=== PATIENT | female | born 1935 | race Caucasian/White ===

== ENCOUNTER 2017-06-04 00:30 | Observation (INO) ==
[2017-06-04] MEDS ORDERED: SALINE FLUSH 10ml SYRINGE IVF PRN (00:35)
--- NOTE | 2017-06-04 00:37 | Emergency Department Report ---
General Adult HPI - General Chief complaint: Nausea/Vomiting/Diarrhea Stated complaint: Dizzy Time Seen by Provider: 06/04/17 00:35 Source: patient, EMS Mode of arrival: EMS Limitations: no limitations - History of Present Illness HPI narrative: 81-year-old female presents to the emergency department with a chief complaint of dizziness. She describes the dizziness as the room spinning about her. She does note that the dizziness is worse with her eyes open and moving her head. She noted onset of symptoms approximately 2 hours prior to arrival to the emergency department. Patient has had at least 3 other similar episodes in the past without a confirmed diagnosis. Patient had an unremarkable brain MRI performed in April 2017. She denies any pain or discomfort. She does note nausea and dry heaving. She denies any trauma, travel, poorly prepared food, or recent antibiotic use. She has no other complaints or associated symptoms. She was at home when her symptoms began. Symptoms have been persistent in nature since onset. - Related Data Home Medications Medication Instructions Recorded Confirmed hydroCHLOROthiazide 25 mg PO DAILY #0 tab 09/22/13 06/04/17 [Hydrochlorothiazide] ALPRAZolam [Xanax] 0.125 mg PO BID PRN 05/06/17 06/04/17 Estrogens, Conjugated [Premarin] 0.3 mg PO DAILY 05/06/17 06/04/17 Ipratropium 0.03% NASAL SPRAY 1 spray EA NOSTRIL DAILY 05/06/17 06/04/17 [Atrovent 0.03% Nasal [place]] Levothyroxine Sodium 50 mcg PO ACB 05/06/17 06/04/17 Multivitamin [One Daily] 1 tab PO DAILY 05/06/17 06/04/17 Rivaroxaban [Xarelto] 20 mg PO WS 05/06/17 06/04/17 Previous Rx's Medication Instructions Recorded Metoclopramide HCl [Reglan] 10 mg PO QID PRN #30 tab 05/06/17 Allergies Allergy/AdvReac Type Severity Reaction Status Date / Time Sulfa (Sulfonamide Allergy Unknown Verified 06/04/17 00:57 Antibiotics) Penicillins AdvReac Unknown NAUSEA Verified 06/04/17 00:57 Review of Systems Constitutional: Denies: fever, chills Eyes: Denies: eye pain, vision change ENT: Denies: ear pain, throat pain Cardiovascular: Denies: chest pain, palpitations Respiratory: Denies: cough, dyspnea Gastrointestinal: Reports: nausea, vomiting. Denies: abdominal pain, diarrhea Genitourinary: Denies: urgency, dysuria Musculoskeletal: Denies: back pain, arthralgia Integumentary: Denies: erythema, rash Neurological: Denies: headache, numbness, paresthesias Psychiatric: Denies: anxiety, depression Endocrine: Denies: fatigue, heat or cold intolerance Hematological/Lymphatic: Denies: easy bruising, lymphadenopathy Allergic/Immunologic: Denies: facial swelling, urticaria PFSH Patient Stated Medical History Other HEENT Yes: GLASSES Cardiac Arrhythmia Yes: A FIB Hypertension Yes Other Hematologic Yes: XARELTO Surgical History: breast cyst -- benign). hysterectomy. hand (trigger finger) Family History: Reviewed and noncontributory. - Social History Smoking status: Never smoker Substance use type: does not use Alcohol intake frequency: does not drink Physical Exam - Limitations Limitations: no limitations - General General appearance: alert, in no apparent distress - Normal Exams: Head:: Normocephalic without trauma Eyes:: Pupils are PERRLA w/ EOMI, No scleral icterus, irritation, or foreign bodies noted (+ horizontal nystagmus.) ENMT:: No facial trauma, nasal exudates, pharyngeal erythema, or exudates are noted Dental: No fractured, loose, or missing teeth noted Neck:: Full range of motion, without adenopathy, JVD, bruits or thyromegaly Chest/Respirations:: Clear all justin, with good airflow, and symmetry bilaterally Cardiovascular:: Regular rate and rhythm, without murmur or gallop, Pulses 2+ all extremities, capillary refill, <2 seconds all extremities Abdomen:: Bowel sounds positive, soft, non-tender, non-distended, no hepatosplenomegaly, masses or bruits noted Lymphatic:: No lymphadenopathy, or lymphedema noted Musculoskeletal:: No tenderness, or deformity noted, good range of motion, all extremities Integumentary:: No rashes, hives, or bruising noted, hair and nails, without abnormality Neurological:: Patient is alert (Alert and oriented x 3. CN 2-12 intact. Normal strength. Normal motor. Normal gait. Sensation Intact. Normal speech. Normal coordination. Absent Babinski bilaterally. Reflexes 2/4 in all extremities.), and oriented, cranial nerves, motor/sensory/cerebellar, exams w/o gross deficits, to observation Psychiatric:: Patient exhibits, appropriate attention, emotion and affect Course Vital Signs Temperature 97.5 F 06/04/17 00:30 Pulse Rate 84 06/04/17 00:30 Respiratory Rate 20 06/04/17 00:30 Blood Pressure 176/78 H 06/04/17 00:30 Pulse Oximetry 92 06/04/17 00:30 Temperature 97.7 F 06/04/17 04:09 Pulse Rate 73 06/04/17 04:09 Respiratory Rate 18 06/04/17 04:09 Blood Pressure 151/77 H 06/04/17 04:09 Pulse Oximetry 98 06/04/17 04:09 Medical Decision Making - [facility] Narrative Medical decision making narrative: Labs / imaging were discussed in detail with the patient and family and questions are answered. Patient is given 500 cc normal saline intravenously times one. She is given Zofran 4 mg IV 1 with improvement of nausea. She is given Antivert 25 mg by mouth 1 with improvement but not resolution of the dizziness. Patient does have resolution of vomiting and improvement in her dizziness but I am not able to totally alleviated the dizziness and the patient is feeling unsteady and dizzy when ambulating. She is a fall risk due to this. She lives alone at home with her elderly . Patient and are not comfortable returning home. Patient is admitted to the service of the hospitalist Dr. Pedraza after discussion with Dr. Plata. No further orders from accepting physician who is in agreement with the current plan of management. Patient and family are in agreement with the current plan of management. She is admitted to the hospital in improved condition. Patient has no urinary symptoms. Culture of urine will be obtained prior to treating. - Differential Diagnosis vertigo, dizziness, dehydration, metabolic process - Lab Data Result diagrams: 06/04/17 00:41 06/04/17 00:41 Lab Results 06/04/17 06/04/17 06/04/17 Range/Units 00:41 00:41 00:52 WBC 12.1 H (4.5-11.0) T/MM3 RBC 4.03 (4.00-5.20) M/MM3 Hgb 12.9 (12-16) GM/DL Hct 38.3 (36-46) % MCV 95.0 (80-100) UM3 MCH 32.0 (26-34) UUG MCHC 33.7 (31-37) GM/DL RDW Std Deviation 44.5 (36.9-50.2) FL Plt Count 207 (130-400) T/MM3 MPV 10.8 (9.4-12.4) UM3 Immature Gran % (Auto) 0.2 (0.0-0.5) % Neut % (Auto) 37.0 (33-66) % Lymph % (Auto) 51.9 H (23-45) % [place] % (Auto) 7.9 (0-9.0) % Eos % (Auto) 2.8 (0-4) % Baso % (Auto) 0.2 (0-2) % Neut # (Auto) 4.5 (1.8-7.7) T/MM3 Lymph # (Auto) 6.3 H (1-4.8) T/MM3 [place] # (Auto) 1.0 H (0-0.8) T/MM3 Eos # (Auto) 0.3 (0-0.5) T/MM3 Baso # (Auto) 0.0 (0-0.2) T/MM3 Abs Immat Gran (auto) 0.02 (0.00-0.03) T/MM3 Turbidity < 20 (0-20) Sodium 140 (134-144) MEQ/L Potassium 3.4 L (3.6-5) MEQ/L Chloride 105 (98-107) MEQ/L Carbon Dioxide 26 (22-30) MEQ/L Anion Gap 9 (5-15) MEQ/L BUN 17.0 (7-17) MG/DL Creatinine 0.9 (0.7-1.2) MG/DL GFR Calculation 60 BUN/Creatinine Ratio 19 (6-26) RATIO Glucose 104 (65-110) MG/DL Calculated Osmolality 271 (261-280) MOSM/KG Calcium 9.2 (8.4-10.2) MG/DL Total Bilirubin < 0.10 L (0.20-1.30) MG/DL Icterus Index < 2 (0-7) AST 27 (14-36) U/L ALT 32 (9-52) U/L Alkaline Phosphatase 93 (38-126) U/L Troponin I < 0.012 (0-0.12) ng/ml Total Protein 7.1 (6.3-8.2) G/DL Albumin 3.9 (3.5-5.0) G/DL Globulin 3.2 (2.4-3.6) G/DL Albumin/Globulin Ratio 1.2 (1.1-2.2) RATIO Specimen Hemolysis < 15 (0-25) Ur Collection Type Urine Color (YELLOW) Urine Clarity Urine pH (5.0-8.0) Ur Specific [place] (1.015-1.025) Urine Protein (NEGATIVE) Urine Glucose (UA) (NEGATIVE) Urine Ketones (NEGATIVE) Urine Occult Blood (NEGATIVE) Urine Nitrate (NEGATIVE) Urine Bilirubin (NEGATIVE) Urine Urobilinogen (NORMAL) EU/DL Ur Leukocyte Esterase (NEGATIVE) Urine RBC (0-3) /HPF Urine WBC (0-5) /HPF Ur Squamous Epith Cells Urine Bacteria (NEGATIVE) Ur Culture Indicated? Influenza Type A (PCR) Negative (Negative) Influenza Type B (PCR) Negative (Negative) 06/04/17 Range/Units 03:06 WBC (4.5-11.0) T/MM3 RBC (4.00-5.20) M/MM3 Hgb (12-16) GM/DL Hct (36-46) % MCV (80-100) UM3 MCH (26-34) UUG MCHC (31-37) GM/DL RDW Std Deviation (36.9-50.2) FL Plt Count (130-400) T/MM3 MPV (9.4-12.4) UM3 Immature Gran % (Auto) (0.0-0.5) % Neut % (Auto) (33-66) % Lymph % (Auto) (23-45) % [place] % (Auto) (0-9.0) % Eos % (Auto) (0-4) % Baso % (Auto) (0-2) % Neut # (Auto) (1.8-7.7) T/MM3 Lymph # (Auto) (1-4.8) T/MM3 [place] # (Auto) (0-0.8) T/MM3 Eos # (Auto) (0-0.5) T/MM3 Baso # (Auto) (0-0.2) T/MM3 Abs Immat Gran (auto) (0.00-0.03) T/MM3 Turbidity (0-20) Sodium (134-144) MEQ/L Potassium (3.6-5) MEQ/L Chloride (98-107) MEQ/L Carbon Dioxide (22-30) MEQ/L Anion Gap (5-15) MEQ/L BUN (7-17) MG/DL Creatinine (0.7-1.2) MG/DL GFR Calculation BUN/Creatinine Ratio (6-26) RATIO Glucose (65-110) MG/DL Calculated Osmolality (261-280) MOSM/KG Calcium (8.4-10.2) MG/DL Total Bilirubin (0.20-1.30) MG/DL Icterus Index (0-7) AST (14-36) U/L ALT (9-52) U/L Alkaline Phosphatase (38-126) U/L Troponin I (0-0.12) ng/ml Total Protein (6.3-8.2) G/DL Albumin (3.5-5.0) G/DL Globulin (2.4-3.6) G/DL Albumin/Globulin Ratio (1.1-2.2) RATIO Specimen Hemolysis (0-25) Ur Collection Type Urine, clean catch Urine Color Yellow (YELLOW) Urine Clarity Clear Urine pH 7.0 (5.0-8.0) Ur Specific [place] 1.015 (1.015-1.025) Urine Protein Negative (NEGATIVE) Urine Glucose (UA) Negative (NEGATIVE) Urine Ketones Negative (NEGATIVE) Urine Occult Blood Negative (NEGATIVE) Urine Nitrate Negative (NEGATIVE) Urine Bilirubin Negative (NEGATIVE) Urine Urobilinogen 0.2 (NORMAL) EU/DL Ur Leukocyte Esterase 1+ A (NEGATIVE) Urine RBC None seen (0-3) /HPF Urine WBC 3-5 (0-5) /HPF Ur Squamous Epith Cells 0-5 Urine Bacteria Trace H (NEGATIVE) Ur Culture Indicated? Cult not indicated Influenza Type A (PCR) (Negative) Influenza Type B (PCR) (Negative) - Radiology Data CXR - No acute processes. CT HEAD - Negative. - EKG Data EKG #1 EKG results narrative: Sinus rhythm. 72 bpm. No STEMI. Disposition Clinical Impression: Dizziness Disposition: 02 To [facility] Condition: Stable Time of Disposition: 03:15 (Admit. Dr. Pedraza. ) - Seen By: physician
[2017-06-04] MEDS ORDERED: NS 1,000 ML IV ONE (00:52)
[2017-06-04] MEDS ORDERED: MECLIZINE 25 MG TABLET PO ONE (01:34)
[2017-06-04] MEDS ORDERED: ONDANSETRON 4 MG/2 ML INJECTION IVP ONE (01:36)
--- NOTE | 2017-06-04 03:59 | History & Physical Report ---
History of Present Illness Date: 06/04/17 Chief complaint: dizzy HPI: this is an 81 y/o w/ h/o HTN, Anxiety, Hypothyroidism, Afib (NSR tonight) on Xarelto who presents to ED w/ relatively quick onset of dizziness described as room spinning, symptoms altered by change in head position and opening/closing eyes. Patient states she was supine in bed watching TV, turned off the TV and then rolled to the other side and became symptomatic. Patient has had similar episodes in the past w/o specific diagnosis including an episode about 1 month ago. Recent MRI brain done in April of 2017 unremarkable per report - no acute changes. Patient has had n/v w/ this episode tonight. Patient is supposed to have appointment w/ a Neurologist in June. Patient denies cp, hall, soa, diarrhea, melena, BRBPR, dysuria, hematuria, dysphagia and no focal neuro deficit otherwise - no focal weakness and no numbness or tingling. In ER, patient continued to have vertigo symptoms including n/v and had antivert 25mg po x one, Zofran 4mg IV and had Zofran and Phenergan en route to ER via EMS. Patient's n/v has improved slightly however patient remains symptomatic and unable to ambulate w/o dizziness. CT head negative, EKG w/ no acute changes and CXR w/o acute process per prelim read; WBC = 12, UA had some + leukocyte esterase but negative nitrite and 3-5 WBC per HPF. ER physician has requested that it be sent for culture. Patient not having any urinary symptoms. Patient received IVFs as well. Patient to be admitted to the Hospitalist service for further evaluation and management. Review of Systems All systems PM: 10-point ROS was reviewed, no additional remarkable complaints except Past Medical History Patient Stated Medical History Other HEENT Yes: GLASSES Cardiac Arrhythmia Yes: A FIB Hypertension Yes Other Hematologic Yes: XARELTO HTN Dizziness / Vertigo episodes in the past - MR brain negative Anxiety Hypothyroidism Surgical History: breast cyst -- benign). hysterectomy. hand (trigger finger) Family History Updates: No significant family history reported - Social History Smoking status: Never smoker Medications Home Medications Medication Instructions Recorded Confirmed Type hydroCHLOROthiazide 25 mg PO DAILY #0 tab 09/22/13 06/04/17 History [Hydrochlorothiazide] ALPRAZolam [Xanax] 0.125 mg PO BID PRN 05/06/17 06/04/17 History Estrogens, Conjugated [Premarin] 0.3 mg PO DAILY 05/06/17 06/04/17 History Ipratropium 0.03% NASAL SPRAY 1 spray EA NOSTRIL DAILY 05/06/17 06/04/17 History [Atrovent 0.03% Nasal [place]] Levothyroxine Sodium 50 mcg PO ACB 05/06/17 06/04/17 History Multivitamin [One Daily] 1 tab PO DAILY 05/06/17 06/04/17 History Rivaroxaban [Xarelto] 20 mg PO WS 05/06/17 06/04/17 History Allergies Allergy/AdvReac Type Severity Reaction Status Date / Time Sulfa (Sulfonamide Allergy Unknown Verified 06/04/17 00:57 Antibiotics) Penicillins AdvReac Unknown NAUSEA Verified 06/04/17 00:57 Exam Vital Signs: Temperature 97.5 F 06/04/17 00:30 Pulse Rate 72 06/04/17 03:30 Respiratory Rate 20 06/04/17 00:30 Blood Pressure 182/72 H 06/04/17 03:30 Pulse Oximetry 99 06/04/17 03:30 Telemetry Rhythm: Sinus Rhythm Height/Weight/BMI: Height 1.63 m Weight 71.3 kg - Constitutional Present: no acute distress, well nourished, well developed - Routine HEENT Exam Head: Present: normocephalic, atraumatic Eye: Present: EOMI, PERRL ENT: Present: mucous membranes dry - Routine Neck Exam Present: supple, full ROM. Absent: JVD - Routine Respiratory Exam Present: CTA bilaterally. Absent: accessory muscle use, respiratory distress - Routine Cardiovascular Exam Present: RRR - Routine Abdominal Exam Present: soft, normoactive bowel sounds, non distended, non tender - Routine Extremities Exam Present: edema (trace, non-pitting). Absent: cyanosis, clubbing - Routine Neurological Exam Present: alert, oriented X3 - Routine Psychiatric Exam Present: normal affect Results - Labs CBC & Chem 7: 06/04/17 00:41 06/04/17 00:41 Assessment and Plan Assessment and Plan: Assessment 1) Acute Vertigo / Dizziness POA w/ gait difficulty and symptomatic w/ certain head movements 2) Acute N/V and mild dehydratoin r/t #1 3) HTN 4) H/o Afib on Xarelto 5) Hypothyroidism 6) Anxiety Plan: Admit to Hospitalist service Antivert scheduled TID today Prn Zofran IVFs that of NS at 100 cc/hour continue home meds as indicated Hold diuretic (HCTZ) Urine culture pending Labs in AM Telemetry PT eval and treat Clear liquid diet - advance as tolerated Consider neurology consult Patient desires DNR code status I discussed the plan of care w/ the patient and she verbalized understanding. Overall she is currently feeling better, nausea has resolved and her vertigo/ dizzy symptoms have improved. DVT Prophylaxis: SCD's, Xarelto Resuscitation Status: Do Not Resuscitate - Physician Narrative Physician: Shweta Pedraza MD Narrative: Date: 06/04/17 Time: [address] Stroud's note reviewed. Mrs. Mcgovern interviewed and examined. Supplemental history provided by multiple family members at bedside CC: Vertigo with nausea vomiting HPI: Tiffanie is an 81-year-old female who presented to the emergency room early this morning after developing abrupt onset dizziness at about 11 PM last night after she turned to the right lying in bed. This was accompanied with nausea/ vomiting and she reports that any movement caused her to feel worse and that she is more comfortable with her eyes closed which causes the spinning sensation to stop. She presented to the emergency room where CT of the head was negative. She had a similar episode of nausea, vomiting, and vertigo about a month ago and was seen in the emergency room with an MRI obtained following day with no acute changes on the MRI. She denies any acute changes with her hearing including hearing loss or increased tinnitus. She denies any change in vision except possible double vision briefly this morning but she is unsure if it was really double vision or just the position she was lying in. She denies numbness in any extremity or weakness in any extremity and family members report her speech has been perfectly normal throughout this event. She's been able to get up and go to the bathroom and tolerate food this morning without difficulty and has not noted recurrence of the vertiginous sensation. Her daughter reports that she's had intermittent headaches for several months when she leans forward or when she coughs and has been tried on several medications. She is scheduled to see Dr. Chen as an outpatient in the near future. PH/SH/FH: agree with that recorded above by Dr. Plata with additions of no family history of stroke but mother and one sister are of Alzheimer's and her father is of bone cancer. In addition to no history of tobacco use she has no history of illicit drug use but does drink wine occasionally. DPOA shared by her and children and she reports a DO NOT RESUSCITATE order. ROS: 10 point review as previously reported by Dr. Plata. EXAM: General-NAD, alert, fluent speech; 98.3, 148/73, 95% on room air HEENT-PERRL, EOMI without nystagmus, conjunctiva clear, sclera anicteric, conjugate gaze, facial structures symmetric, oropharynx clear, neck supple and without adenopathy Lungs-respirations nonlabored, good airflow, breath sounds clear Cardiac-regular rhythm, S1-S2 Abd-soft, nontender, without palpable mass Ext-without edema Skin-without rash or wounds Neuro-cranial nerves 3-12 intact, motor tone/power normal-no drift of the upper extremities, able to hold legs off the bed individually and against resistance; [id number], [id number] normal; sensation intact to light touch 4 extremities Psych-calm, cooperative DATA: White count minimally elevated at 12.1, remainder of CBC unremarkable, potassium 3.4 and remainder of chemistries/liver enzymes normal. Urine unremarkable and influenza A/B negative. CT head reviewed by myself and demonstrates some minor chronic small vessel changes but no acute pathology. Sinuses unremarkable. Portable chest x-ray also reviewed by myself and is without acute pulmonary disease, heart size normal. A/P: Vertigo Nausea/vomiting-consistent with above Hypertension History of for fibrillation on Xarelto Hypothyroidism Recent headaches Presenting symptoms have resolved spontaneously at the time of reassessment this morning. Dr. Chen consulted and case discussed with him later in the day after he evaluated her. He felt symptoms were peripheral in origin and patient could be discharged home with outpatient follow-up. He recommended treatment with low-dose steroids recommending Decadron 2 mg daily. Additionally he recommended outpatient physical therapy for vestibular training and possible follow-up with ENT if symptoms are recurrent. Home medications were continued. Hospital Course Summary Disclaimer: The visit summary below is not to be considered part of the above Progress Note.
[2017-06-04] MEDS ORDERED: ALPRAZolam 0.25 MG TABLET PO PRN (04:14)
[2017-06-04] MEDS ORDERED: ACETAMINOPHEN 325 MG TABLET PO PRN (04:14)
[2017-06-04] MEDS ORDERED: ONDANSETRON 4 MG/2 ML INJECTION IVP PRN (04:14)
[2017-06-04 04:15] VITALS: RESP 18
[2017-06-04 04:33] VITALS: BMI 26.1
[2017-06-04] MEDS ORDERED: FALL RISK - PHARMACY CONSULT XX ONE (04:34)
[2017-06-04] MEDS: NS 1,000 ML IV SCH ×2 (04:44→15:19)
[2017-06-04] MEDS ORDERED: LEVOTHYROXINE 50 MCG TABLET PO SCH (06:30)
[2017-06-04 07:25] VITALS: TEMP 98.3
--- NOTE | 2017-06-04 08:04 | XRay Report ---
Indication: dizzy PROCEDURE: XR chest 1V: Encounter: Initial Comparison: September 22, 2013 FINDINGS: The lungs are clear. There is no abnormal airspace opacity, pleural effusion or pneumothorax identified. The heart size, pulmonary vasculature and mediastinum are within normal limits. No significant skeletal abnormality is seen. IMPRESSION: No acute cardiopulmonary abnormality. .
--- NOTE | 2017-06-04 08:05 | CT Scan Report ---
Indication: Dizzy PROCEDURE: CT head/brain wo con: Encounter: Initial Comparison: September 22, 2013 Technique: Axial CT images through the head were performed without contrast. Iterative Reconstruction dose reducing technique was utilized. FINDINGS: The ventricles are of normal size, shape, and contour for the patient's age. There are scattered areas of low attenuation in the white matter which most likely represent changes from chronic microvascular ischemia. The brainstem, cerebellum, and cerebral hemispheres otherwise have a normal morphology and CT attenuation. There is no evidence of midline displacement. No hemorrhage, signs of acute territorial stroke, mass effect, mass lesions, or edema is evident. The visualized portions of the skull base, midface, and calvarium demonstrate no abnormality. The paranasal sinuses are well aerated and free of significant disease. The tympanic and mastoid cavities appear normal. IMPRESSION: No acute intracranial abnormality or hemorrhage. Stable head CT. There is a preliminary report by [employer]. .
[2017-06-04] MEDS ORDERED: IPRATROPIUM 0.03% EA NOSTRIL SCH (09:00)
[2017-06-04] MEDS ORDERED: ESTROGENS, CONJUGATED 0.3 MG TABLET PO SCH (09:00)
[2017-06-04] MEDS: MECLIZINE 25 MG TABLET PO SCH ×2 (09:04→17:49)
[2017-06-04 15:46] VITALS: BP 151/68; O2SAT 98
[2017-06-04] MEDS ORDERED: DEXAMETHASONE 1 MG TABLET PO SCH (16:45)
--- NOTE | 2017-06-04 16:56 | Consultation ---
DATE OF CONSULTATION 06/04/[address] Pedraza[address] CHIEF COMPLAINT Vertigo, headache and nausea. HISTORY OF PRESENT ILLNESS Patient is an 81-year-old female who has had recurrent episodes of vertigo for the past month. This started insidiously a month ago with new-onset vertiginous sensation affecting the patient sporadically. Those episodes tend to last for several hours at a time as per patient. They have not been exacerbated by standing or changing position. The patient described having the vertiginous sensation even when she is lying down in bed. The patient's symptoms improved initially with meclizine and steroids. She had a normal MRI of the brain at that time after the first event. She was doing fine until yesterday when she started having severe vertiginous sensation again. Those were associated with severe headache exacerbated by leaning forward and trying to picker tender helper something from the floor. She was taken to the emergency room. She had a CT of the head that showed no acute changes and no signs of sinusitis. Her symptoms improved after getting meclizine and nausea medication. She continues to have moderate headache and no significant vertigo sensation this morning. She was able to move from the bed to the bathroom with minimal assistance. She had no focal neurological deficit. No coordination or speech problem. No double vision and no other sympathetic symptoms. The patient denies having any ringing in the years or hearing loss. On physical examination the patient was awake, alert, oriented x 3. Pupils were round, reactive and equal. Extraocular muscles were intact. Visual field was full. Speech was fluent. Motor examination was 5/5. Sensory examination was symmetrical to light touch, pinprick and vibration sensation. Deep tendon reflexes were in flexion bilaterally. Coordination for [id number], alternating movement of the hands and cyya-iw-coxe were all normal. The patient had some minor headache. Her funduscopic examination was unremarkable. ASSESSMENT Intermittent vertiginous sensation associated with severe nausea and headache. This can be a manifestation of the vestibular neuronitis associated with viral disease affecting the upper respiratory tract and potential sinusitis. This is less likely to represent benign positional vertigo due to the prolonged nature of those events and the lack of response to changing position and lying down. Other considerations include disease of the ear like Mnire's disease. The patient has had no tinnitus and no hearing loss which are normally associated with this condition. PLAN 1. Continue meclizine 25 mg p.o. t.i.d. for vertigo sensation. May use Zofran for nausea and headache. Patient may also benefit from a low dosage of steroid including Decadron 1-2 mg p.o. b.i.d. to help headache and the vertigo, especially in the case of vestibular neuronitis. The patient had difficulty tolerating prednisone two weeks ago due to a GI problem. Other ways of providing the medication can be using IV infusion. 2. Physical therapy for vestibular ocular exercise to help vertigo. MTDD
[2017-06-04 16:59] VITALS: PULSE 78
[2017-06-04] MEDS ORDERED: RIVAROXABAN 20 MG TABLET PO SCH (17:30)
--- NOTE | 2017-06-04 20:18 | Discharge Summary ---
Discharge Summary- Blank Discharge Summary: Mrs. Mcgovern was hospitalized with nausea, vomiting, and vertigo which subsided in less than 12 hours of onset. She's previously had similar brief episodes of vertigo. She was seen in consultation by Dr. Chen who felt she likely had vestibular neuronitis possibly associated with a recent upper respiratory infection or less likely benign positional vertigo with prolonged events. Mni re's was felt less likely. She was fully asymptomatic by mid morning following admission and stable for discharge after assessment. Head CT was unremarkable and she had an MRI with similar events last month. Patient was subsequently started on low-dose Decadron at 2 mg daily and was referred for vestibular training as an outpatient with physical therapy. She has metoclopramide if needed for nausea and was discharged with meclizine as needed for vertigo. She is to follow up with Dr. Chen as previously scheduled, with Dr. Calixto in approximately one week, and ENT follow-up can be considered if symptoms are ongoing. Home medications were resumed.
== END 2017-06-04 18:20 | disposition home or self-care (01) ==
LOC: MED 00:30 → ED 00:30 → MED 04:00
PROVIDERS: ADMIT Internal Medicine; ATTEND Internal Medicine